=== PATIENT | female | born 1965 | race Caucasian/White ===

== ENCOUNTER → 2020-02-19 09:10 | Outpatient (CLI) | payer MEDICARE, MEDICAID, SELFPAY ==
[2020-02-19 09:27] LABS: Microscopic, Urine URINE MICROSCOPIC (MICROSCOPIC)
[2020-02-19 14:22] LABS: Appearance,Urine CLEAR (Clear); Bilirubin,Urine Negative (Negative); Blood, Urine Negative (Negative); Color,Urine YELLOW (Yellow); Glucose,Urine (UA) Negative (Negative); Ketones,Urine Negative (Negative); Leukocyte Esterase,Urine 1+ (Negative); Nitrate,Urine Negative (Negative); PH,Urine 6.5 (5.0-8.5); Protein,Urine Negative (Negative); Specific Gravity, Urine 1.015 (1.005-1.030); Urobilinogen,Urine 0.2 EU/dl (0.2)
[2020-02-19 14:25] LABS: Chloride 107 mmol/L (98-107); Potassium 4.5 mmoL/L (3.5-5.1); Sodium 141 mmol/L (136-145)
[2020-02-19 14:28] LABS: Alanine Aminotransferase 26 U/L (12-78); Albumin Level 4.3 g/dl (3.5-5.0); Albumin/Globulin Ratio 1.4 (1.1-1.8); Alkaline Phosphatase 77 U/L (38-126); Anion Gap 12.5 mEq/L (5-15); Aspartate Amino Transferase 34 U/L (14-36); Bilirubin,Total 0.4 mg/dl (0.2-1.3); Blood Urea Nitrogen 12 mg/dl (7-17); Calcium 9.7 mg/dl (8.4-10.2); Carbon Dioxide 26 mmol/L (22.0-30.0); Chol/HDL Ratio 4.4 (1-3.5); Cholesterol 253 mg/dl (140-200); Estimated Glomerular Filt Rate 65 ml/min (>60); GFR (African American) 79 ML/MIN (>60); Glucose 83 mg/dl (74-100); HDL Cholesterol 58 mg/dl (40-60); Total Protein,Serum 7.3 g/dl (6.3-8.2); Triglycerides 89 mg/dl (30-150); VLDL Cholesterol 18 mg/dL (0-40)
[2020-02-19 14:38] LABS: Basophils # 0.1 K/mm3 (0-0.2); Basophils % 1.1 % (0.1-2.0); Eosinophils # 0.3 K/mm3 (0.0-0.4); Eosinophils % 4.8 % (0.1-12.0); Hematocrit 41.4 % (37.0-47.0); Hemoglobin 14.1 g/dL (12.2-16.2); Lymphocytes # 2.2 K/mm3 (0.7-4.5); Mean Corpuscular Hemoglobin 33.1 pg (27.0-31.2); Mean Corpuscular Volume 97.3 fl (81-99); Mean Platelet Volume 10.2 fl (7.4-10.4); Monocytes # 0.2 K/mm3 (0.1-1.0); Monocytes % 3.9 % (1.7-9.3); Neutrophils # 2.9 K/mm3 (1.8-7.8); Neutrophils % 51.2 % (37.0-80.0); Platelet Count 238 K/mm3 (142-424); Red Blood Count 4.26 M/mm3 (4.20-5.40); Red Cell Distribution Width 13.1 % (11.5-17.5); White Blood Count 5.6 K/mm3 (4.8-10.8)
[2020-02-19 14:40] LABS: Direct LDL Cholesterol 156.76 mg/dL (100-129)
[2020-02-19 14:57] LABS: Thyroid Stimulating Hormone 1.54 uIU/mL (0.465-4.68)
[2020-02-19 15:00] LABS: Bacteria,Urine 1+ /lpf; RBC,Urine Occasional #/hpf (0-3)
[2020-02-19 15:01] LABS: Amorphous Sediment,Urine Trace /lpf
[2020-02-19 15:18] LABS: Hemoglobin A1C 5.2 % (4.0-6.0)
[2020-02-25 09:19] LABS: 1,25 Dihydroxy Vitamin D 43 pg/mL (.); 1,25-Dihydroxy, Vitamin D-2 <10 pg/mL (.); 1,25-Dihydroxy, Vitamin D-3 42 pg/mL (.)
== END ==
PROVIDERS: Visit Provider Emergency Medicine
DX: Z76.89 Persons encountering health services in other specified circumstances (principal); M54.9 Dorsalgia, unspecified; Z79.899 Other long term (current) drug therapy
CPT/HCPCS: 36415; 80053; 80061; 81001; 82652; 83036; 84443; 85025; 87086

== ENCOUNTER 2025-03-17 19:50 | Emergency (ER) | payer MEDICARE, SELFPAY ==
--- OUTSIDE RECORDS SUMMARY | 2024-09-12 07:30 | XMS_ITS ---
Author Organization [facility] [place] Address [address] [place] [address] [place] [address] Care Team Providers Care Waste Management Recycling Technician Name Role Phone GERRY ARELLANO Unavailable [phone] REASON FOR VISIT NEPH FU//RS FROM 08.29.24 Encounters Encounter Location Date Provider Diagnosis [facility] [address] [place] [address] 09/12/2024 GERRY ARELLANO Plan Of Treatment No Information Progress Notes * KACI GARCIADOB: [birth year] (60 yo F)Acc No.[id number]:09/12/2024 Patient: Priscilla BIBIBEAKACI Provider: Valentina ARELLANO M.D., F.A.C.P. :1965 A ge:59 Y S ex:Female Date:09/12/2024 Address:[address] [place] [address] [id number] Subjective: * Chief Complaints: * 1 . NEPH FU//RS FROM 08.29.24. * Medical History: Objective: * Vitals: Assessment: Plan: * Treatment: * * Electronic signature of RUFINO ARELLANO MD on 03/17/2025 at 08:01 PM EDT Sign off status: Pending * Provider: Valentina ARELLANO M.D., F.A.C.P. Date: 0 09/12/2024 Generated for Printi mariela/Gemma/eTransmitting on: 0 03/17/2025 08:01 PM EDT
--- OUTSIDE RECORDS SUMMARY | 2025-02-12 10:00 | XMS_ITS ---
Author Organization [facility] [place] Address [address] [place] [place] [address] Care Team Providers Care Real Estate Acquisition Analyst Name Role Phone GERRY ARELLANO Unavailable [phone] REASON FOR VISIT NEPH FOLLOW UP Encounters Encounter Location Date Provider Diagnosis [facility] [place] [address] [place] [place] [address] 02/12/2025 GERRY ARELLANO Plan Of Treatment No Information Progress Notes * KACI GARCIADOB: [birth year] (60 yo F)Acc No.[id number]:02/12/2025 Patient: KACI LUBIN Provider: Valentina ARELLANO M.D., F.A.C.P. :1965 A ge:60 Y S ex:Female Date:02/12/2025 Address:[address] [place] [address] [place] [id number] Subjective: * Chief Complaints: * 1 . NEPH FOLLOW UP. * Medical History: Objective: * Vitals: Assessment: Plan: * Treatment: * * Electronic signature of RUFINO ARELLANO MD on 03/17/2025 at 08:01 PM EDT Sign off status: Pending * Provider: Valnetina ARELLANO M.D., F.A.C.P. Date: 0 02/12/2025 Generated for Printi ng/Faxing/eTransmitting on: 0 03/17/2025 08:01 PM EDT
--- OUTSIDE RECORDS SUMMARY | 2025-02-26 04:00 | XMS_ITS ---
Author Organization [facility] [place] Address [address] [place] [address] Care Team Providers Care Svp Group Director Name Role Phone GERRY ARELLANO Unavailable [phone] REASON FOR VISIT NEPH FOLLOW UP/CCA Encounters Encounter Location Date Provider Diagnosis [facility] [address] [address] 02/26/2025 GERRY ARELLANO Plan Of Treatment No Information Progress Notes * KACI GARCIADOB: [birth year] (60 yo F)Acc No.[id number]:02/26/2025 Patient: KACI LUBIN Provider: Valentina ARELLANO M.D., F.A.C.P. :1965 A ge:60 Y S ex:Female Date:02/26/2025 Address:[address] [place], [place] [address] [id number] Subjective: * Chief Complaints: * 1 . NEPH FOLLOW UP/CCA. * Medical History: Objective: * Vitals: Assessment: Plan: * Treatment: * * Electronic signature of RUFINO ARELLANO MD on 03/17/2025 at 08:01 PM EDT Sign off status: Pending * Provider: Valentina ARELLANO M.D., F.A.C.P. Date: 0 02/26/2025 Generated for Printi ng/Faxing/eTransmitting on: 0 03/17/2025 08:01 PM EDT
--- OUTSIDE RECORDS SUMMARY | 2025-03-05 04:00 | XMS_ITS ---
Author Organization [facility] [place] Address [address] [place] [address] [place] [address] Care Team Providers Care Derivatives Trader Name Role Phone GERRY ARELLANO Unavailable [phone] REASON FOR VISIT NEPH FU//RS Encounters Encounter Location Date Provider Diagnosis [facility] [address] [address] 03/05/2025 GERRY ARELLANO Plan Of Treatment No Information Progress Notes * KACI GARCIADOB: [birth year] (60 yo F)Acc No.[id number]:03/05/2025 Patient: KACI LUBIN Provider: Valentina ARELLANO M.D., F.A.C.P. :1965 A ge:60 Y S ex:Female Date:03/05/2025 Address:[facility] [place] [facility] Subjective: * Chief Complaints: * 1 . NEPH FU//RS. * Medical History: Objective: * Vitals: Assessment: Plan: * Treatment: * * Electronic signature of RUFINO ARELLANO MD on 03/17/2025 at 08:01 PM EDT Sign off status: Pending * Provider: Valentina ARELLANO M.D., F.A.C.P. Date: 0 03/05/2025 Generated for Printi ng/Faxing/eTransmitting on: 0 03/17/2025 08:01 PM EDT
--- OUTSIDE RECORDS SUMMARY | 2025-03-12 04:00 | XMS_ITS ---
Author Organization [facility] [place] Address [address] [place] [address] Care Team Providers Care Morning Nanny Name Role Phone GERRY ARELLANO Unavailable [phone] REASON FOR VISIT f/u Encounters Encounter Location Date Provider Diagnosis [facility] [place] [address] [address] 03/12/2025 GERRY ARELLANO Plan Of Treatment No Information Progress Notes * KACI GARCIADOB: [birth year] (60 yo F)Acc No.[id number]:03/12/2025 Patient: KACI LUBIN Provider: Valentina ARELLANO M.D., F.A.C.P. :1965 A ge:60 Y S ex:Female Date:03/12/2025 Address:[address] [place] [address] [place] [id number] Subjective: * Chief Complaints: * 1 . F/u. * Medical History: Objective: * Vitals: Assessment: Plan: * Treatment: * * Electronic signature of RUFINO ARELLANO MD on 03/17/2025 at 08:01 PM EDT Sign off status: Pending * Provider: Valentina ARELLANO M.D., F.A.C.P. Date: 0 03/12/2025 Generated for Printi ng/Faxing/eTransmitting on: 03/17/2025 08:01 PM EDT
[2025-03-17 19:53] VITALS: BP 148/62; PULSE 78; RESP 17; TEMP 37.1; O2SAT 95; BMI 22.2
--- NOTE | 2025-03-17 19:58 | ED_ITS ---
<Statement entered by Nova Blevins DO - 03/18/25 15:28> I was consulted by the SAPPHIRE, and we discussed the complexity of problems being addressed. I approve the treatment and management plan for this patient's care in the emergency department, thus performing a substantial portion of the medical decision making. Nova Blevins DO Discharge Plan Disposition Patient Disposition: Home, Self-Care Condition: Good Referrals Follow up/Referrals: Concha Aj APRN [Primary Care Provider, Medical] - See instructions Activity Restrictions/Add. Instructions Additional Instructions/Restrictions: Please return to the emergency department with any worsening signs or symptoms. Please continue to take all your current medications as prescribed. Please follow-up with your PCP/family doctor in the upcoming days/weeks. Clinical Impressions Clinical Impression: Cannabinoid hyperemesis syndrome Instructions Patient Instructions: DI for Nausea -- Adult, DI for Cannabinoid Hyperemesis Syndrome Print Language Print Language: Lao Discharge ED Provider: Nova Blevins General Adult HPI General Chief complaint: Nausea/Vomiting/Diarrhea Stated complaint: N/V Time Seen by Provider: 03/17/25 19:51 Mode of Arrival: EMS Source of Information: Patient Limitations: No Limitations History of Present Illness HPI narrative: 60-year-old female presents to the emergency department via EMS for nausea and vomiting episode x 2, started this evening, patient endorses waxing and waning nausea for 1 week, patient admits to subjective fever chills, no recorded Tmax, no chest pain no shortness of breath, no abdominal pain, no hematuria melena hematochezia or hematemesis, patient denies any constipation or diarrhea, no urinary type symptomatology. Patient is a current everyday smoker, denies any alcohol, denies any overt drug use, does state that she took a delta 8 gummy today. Patient was also seen by what sound like her PCP today, for 3-month checkup, unremarkable visit, when asking if the patient had the symptoms prior, patient states no they started tonight . Other past medical history is consistent with hyperlipidemia, hypertension, anxiety/depression, COPD. Initial triage vitals are unremarkable. Of note patient received Zofran IV, and LR IV en route via EMS Please note that above description of symptoms, in this electronic medical record under categorization of recalled from ER triage doctor by RN are reflective of an initial nursing assessment, however, is not reflective of my full history and physical exam that was personally taken and clarified. Consequentially, this preceding description of symptoms, which may include the patient's categorized chief complaint in the EMR, do not reflect my personal clinical impression, and the ultimate description of history of present illness and patient stated complaints should be deferred to this section of the note. Unless stated otherwise or congruent with this section of the note, additional signs, symptoms, or incongruence should be interpreted as inaccurate with my clinical impression. Onset (ago): hour(s) Related Data Allergies Allergy/AdvReac Type Severity Reaction Status Date / Time No Known Allergies Allergy Verified 03/17/25 20:02 [facility] Disclaimer: The information contained in this section may have been updated after the patient was seen, as this information can be updated by other users. Social History Smoking Status: Current every day smoker alcohol intake: never current occupational status: other Travel in the last 8 weeks?: None ROS Obtained: Yes All systems reviewed & no additional complaints except as documented Physical Exam General General appearance: alert and in no apparent distress Head Head exam: atraumatic and normocephalic Eye Eye exam: Present PERRL and EOMI ENT ENT exam: Present mucous membranes moist Neck Neck exam: Present normal inspection Chest Chest inspection: Present normal inspection and symmetric chest wall rise Respiratory Respiratory exam: Present normal lung sounds bilaterally; Absent respiratory distress Cardiovascular Cardiovascular exam: Present regular rate and normal rhythm Abdominal Exam Abdominal exam: Present soft; Absent tenderness, guarding or rebound Extremities Exam Extremities exam: Present normal inspection Neurological Exam Neurological exam: Present alert and oriented X3 Psychiatric Psychiatric exam: Present normal affect Skin Skin exam: Present warm and dry Medical Decision Making Medical Records Medical records reviewed: Yes I reviewed the patient's medical records. Screening: Per USPSTF and CDC recommendations, given the prevalence of disease in our region, it is our hospital?s policy to screen for HIV and viral Hepatitis for all patients aged 18 and over and those with ongoing risk factors. Scott Inquiry Pt receiving controlled substance: No Scott was queried for this patient: No Vital Signs: 03/17/25 19:53 03/17/25 20:03 03/17/25 21:00 Temperature 98.7 F 98.7 F Temperature Source Oral Oral Pulse Rate 78 55 L Pulse Rate [Left Radial] 78 Respiratory Rate 17 17 Blood Pressure 143/62 H 155/71 H Blood Pressure [Left Radial Artery] 148/62 H Blood Pressure Mean [Left Radial Artery] 90 Blood Pressure Source [Left Radial Artery] Automatic Cuff Blood Pressure Position Sitting Blood Pressure Position [Left Radial Artery] Sitting 02 Sat by Pulse Oximetry 95 95 97 Oxygen Delivery Method Room Air Room Air Lab Data Lab results reviewed: Yes I reviewed the patient's lab results. Lab Results 03/17/25 19:57: Urine Color Yellow, Urine Appearance Clear, Urine pH 7.0, Ur Specific [place]sey 1.015, Urine Protein Negative, Urine Glucose (UA) Negative, Urine Ketones Negative, Urine Blood Trace-i, Urine Nitrate Negative, Urine Bilirubin Negative, Urine Urobilinogen 0.2, Ur Leukocyte Esterase Trace, Urine RBC 5-10, Urine WBC 3-5, Ur Squamous Epith Cells 3-5, Urine Bacteria 1+ 03/17/25 20:10: Urine Opiates Screen Negative, Urine Methadone Screen Negative, Ur Barbituates Screen Positive H, Ur Phencyclidine Scrn Negative, Ur Amphetamines Screen Negative, U Benzodiazepines Scrn Negative, Urine Cocaine Screen Negative, U Marijuana (THC) Screen Positive H 03/17/25 20:16: WBC 5.8, RBC 4.08 L, Hgb 12.8, Hct 38.3, MCV 93.9, MCH 31.4 H, MCHC 33.4, RDW 13.4, Plt Count 180, MPV 10.4, Neut % (Auto) 66.0, Lymph % (Auto) 27.6, [place] % (Auto) 3.9, Eos % (Auto) 1.9, Baso % (Auto) 0.3, Neut # (Auto) 3.9, Lymph # (Auto) 1.6, [place] # (Auto) 0.2, Eos # (Auto) 0.1, Baso # (Auto) 0.0, Sodium 137, Potassium 3.9, Chloride 105, Carbon Dioxide 26, Anion Gap 9.9, BUN 9, Creatinine 0.80, Estimated Creat Clear 74, Estimated GFR 73, Est GFR ( Amer) 89, Glucose 106 H, Calcium 9.4, Magnesium 1.8, Total Bilirubin 0.4, AST 42 H, ALT 23, Alkaline Phosphatase 80, Total Protein 7.7, Albumin 4.6, Globulin 3.1, Albumin/Globulin Ratio 1.5, Lipase 111, Plasma/Serum Alcohol < 10 03/17/25 21:00: Lactate 1.0 03/17/25 20:16 03/17/25 20:16 Orders (Tests/Meds): ED MEDICATIONS Discontinued Medications Generic Name Dose Route Start Last Admin Trade Name Joel PRN Reason Stop Dose Admin Droperidol 0.625 mg 03/17/25 21:04 03/17/25 21:22 Droperidol 5mg/2ml Vial IV 03/17/25 21:05 0.625 mg ONCE ONE Administration ORDERS Category Date Time Status Complete Blood Count Auto Diff Stat Lab 03/17/25 20:16 Completed Comprehensive Metabolic Panel Stat Lab 03/17/25 20:16 Completed Drug Screen,Urine Stat Lab 03/17/25 20:10 Completed Ethanol [Ethyl Alcohol] Stat Lab 03/17/25 20:16 Completed Lactic Acid Stat Lab 03/17/25 21:00 Completed Lipase Stat Lab 03/17/25 20:16 Completed Magnesium Stat Lab 03/17/25 20:16 Completed Urinalysis and Microscopic Stat Lab 03/17/25 19:57 Completed Medical Decision Narrative: 60-year-old female presents the emergency department via EMS for nausea vomiting, last 24 hours, differential diagnose include but not limited to, colitis, gastroenteritis, gastritis, cardiac arrhythmia, electrolyte disturbance, cannabinoid hyperemesis syndrome among others. I discussed this patient's case with attending physician Dr. Blevins Will obtain basic laboratory studies, EKG, UDS at the alcohol level, lactic acid level, lipase low magnesium level and UA. UA is unremarkable, negative nitrites, trace leukocyte esterase, negative ketonuria, negative hematuria CBC unremarkable UDS notable for barbiturates as well as marijuana (THC) otherwise negative. CMP notable for mild AST elevation of 42, lipase within normal limits. Patient still complaining of some nausea, after Zofran administration per EMS, will give 0.65 IV droperidol for nausea. Most likely in the setting of cannabinoid hyperemesis. Ethyl alcohol level within normal limits. No lactic acidosis. Will p.o. challenge patient. Patient had successful p.o. challenge with soda, her nausea and vomiting symptoms have subsided, I do believe this is a degree of cannabinoid hyperemesis, patient states that she took a different brand , of THC delta 8 Gummies today. This could be attributing to her send otology. Patient was given strict ED return precautions. Patient voiced understanding and agreement with the current treatment plan/discharge plan. Patient will follow-up PCP and other providers in the upcoming days/weeks. Critical Care Critical Care Time Critical Care Time: No
--- OUTSIDE RECORDS SUMMARY | 2025-03-17 20:01 | XMS_ITS | Patient Health Record ---
Author Organization [facility] [place] Address [address] [place] [address] Care Team Providers Care Escrow Closer Name Role Phone GERRY ARELLANO Unavailable [phone] Allergies No Known Allergies Results Component Value Reference Range Notes Comp. Metabolic Panel (14) Reviewed date:04/12/2024 09:06:57 AM Interpretation: Performing Lab:[facility] [place], [address] [facility], Phone - [phone], Director - PhDRicchiedgari Notes/Report: Glucose 71 70-99 mg/dL BUN 16 6-24 mg/dL Creatinine 1.07 0.57-1.00 mg/dL eGFR 60 >59 mL/min/1.73 BUN/Creatinine Ratio 15 9-23 Sodium 142 134-144 mmol/L Potassium 4.3 3.5-5.2 mmol/L Chloride 101 96-106 mmol/L Carbon Dioxide, Total 23 20-29 mmol/L Calcium 9.1 8.7-10.2 mg/dL Protein, Total 6.8 6.0-8.5 g/dL Albumin 4.4 3.8-4.9 g/dL Globulin, Total 2.4 1.5-4.5 g/dL Bilirubin, Total <0.2 0.0-1.2 mg/dL Alkaline Phosphatase 90 44-121 IU/L AST (SGOT) 19 0-40 IU/L ALT (SGPT) 14 0-32 IU/L Ultrasound : Kidneys Reviewed date:03/21/2024 12:06:18 PM Interpretation: Performing Lab: Notes/Report: SHYAM 12 Plus Profile (RDL) Reviewed date:04/03/2024 09:48:27 AM Interpretation: Performing Lab:[facility] [place], [address] [facility], [place], Phone - [phone], Director - Ana Notes/Report: Test(s) 763615-Bmjb-Fbzxaqw Ab by IFA (RDL); 598453- Homogeneous Pattern; 203738-Ieocsjjny Pattern; 157480- Speckled Pattern; 255974-Ansvfpqxhg Pattern; 609301- Spindle Apparatus Pattern; 607960-Uchhpkq Membrane Pattern; 921286- Midbody Pattern; 504698-Oouuanw Dot Pattern; 113575-FEUD Pattern; 866460-Vpfiqipmb Pattern; 719606-Agvs-dxVLQ Ab by Magdy(RDL); 382414- Anti-CCP Ab, IgG + IgA (RDL) was developed and its performance characteristics determined by [employer]. It has not been cleared or approved by the Food and Drug Administration. Test(s) 218428-Hghw-Tisrtlj Ab by IFA (RDL); 608620- Homogeneous Pattern; 869291-Hfecprwxd Pattern; 806590- Speckled Pattern; 864105-Gfrbfnckhg Pattern; 018497- Spindle Apparatus Pattern; 443284-Orupujs Membrane Pattern; 394840- Midbody Pattern; 518871-Izpdqgx Dot Pattern; 431156-ZTIR Pattern; 556799-Scdpnnjof Pattern; 195649-Evqr-gmDXX Ab by Magdy(RDL); 460506- Anti-CCP Ab, IgG + IgA (RDL) was developed and its performance characteristics determined by [employer]. It has not been cleared or approved by the Food and Drug Administration. Anti-Nuclear Ab by IFA (RDL) Positive Negative Centromere Pattern 1:1280 <1:40 Note: SHYAM performed b y Indirect Fluorescent Antibody (IFA) Anti-Centromere Ab by IFA(RDL) 1:1280 <1:40 Anti-dsDNA Ab by Magdy(RDL) <8.0 <8.0 IU/mL Anti-Sm Ab (RDL) <20 <20 Units Anti-U1 STATE ATTORNEY Ab (RDL) <20 <20 Units Anti-Ro (SS-A) Ab (RDL) 25 <20 Units Anti-La (SS-B) Ab (RDL) <20 <20 Units Anti-Scl-70 Ab (RDL) <20 <20 Units Anti-Cardiolipin Ab, IgG (RDL) <15 <15 GPL U/ mL Anti-Cardiolipin Ab, IgA (RDL) <12 <12 APL U/ mL Anti-Cardiolipin Ab, IgM (RDL) 17 <13 MPL U/ mL C3 Complement (RDL) 140 82-167 mg/dL C4 Complement (RDL) 34 14-44 mg/dL Anti-TPO Ab (RDL) <9.0 <9.0 IU/mL Anti-Chromatin Ab, IgG (RDL) 22 <20 Units Anti-CCP Ab, IgG + IgA (RDL) <20 <20 Units Rheumatoid Factor by Turb RDL <14 <14 IU/mL SHYAM Plus 12 Interpretation Interpretation for Anti-Sm, Anti-U1 STATE ATTORNEY, Anti-Ro, Anti-La: Negative: <20 Weak Positive: 20 - 39 Moderate Positive: 40 - 80 Strong Positive: >80 . Interpretation for Anti-CCP Ab, IgG / IgA: Negative: <20 Weak Positive: 20 - 39 Moderate Positive: 40 - 59 Strong Positive: >59 . Interpretation for Anti-Cardiolipin Ab: Negative: GPL <15, APL <12, MPL <13 Indeterminate: GPL 15-20, APL 12-20, MPL 13-20 Low Positive: GPL, APL, MPL >20 - 40 Med Positive: GPL, APL, MPL >40 - 80 High Positive: GPL, APL, MPL >80 . SLE classification criteria are based on Med to High titer (>40) Anti-Cardiolipin Ab (aCL). aCL may be elevated transiently with certain infections and may increase spuriously in the presence of rheumatoid factor. ANCA Profile Reviewed date:04/03/2024 09:48:16 AM Interpretation: Performing Lab:[facility], [address] [place] [address], Phone - [phone], Director - [facility] Notes/Report: Test(s) [id number]-Qaap-Diuvkgq Ab by IFA (RDL); 638094- Homogeneous Pattern; 855676-Nzzypktdr Pattern; 447854- Speckled Pattern; 381755-Eouvzhispc Pattern; 482579- Spindle Apparatus Pattern; 259379-Vzrkech Membrane Pattern; 875994- Midbody Pattern; 515280-Kvzvhuf Dot Pattern; 119675-HKYH Pattern; 211069-Nqqhyhlbc Pattern; 531821-Fctf-csZHL Ab by Magdy(RDL); 123682- Anti-CCP Ab, IgG + IgA (RDL) was developed and its performance characteristics determined by [employer]. It has not been cleared or approved by the Food and Drug Administration. Anti-MPO Antibodies <0.2 0.0-0.9 units Anti-PR3 Antibodies <0.2 0.0-0.9 units Cytoplasmic (C-ANCA) <1:20 Neg:<1:20 titer Perinuclear (P-ANCA) <1:20 Neg:<1:20 titer The presence of positive fluorescence exhibiting P-ANCA or C-ANCA patterns alone is not specific for the diagnosis of Heather's Granulomatosis (WG) or microscopic polyangiitis. Decisions about treatment should not be based solely on ANCA IFA results. The International ANCA Group Consensus recommends follow up testing of positive sera with both NM-3 and MPO-ANCA enzyme immunoassays. As many as 5% serum samples are positive only by EIA. Ref. AM J Clin Pathol 1999;111:507-513. Atypical pANCA <1:20 Neg:<1:20 titer The atypical pANCA pattern has been observed in a significant percentage of patients with ulcerative colitis, primary sclerosing cholangitis and autoimmune hepatitis. Comp. Metabolic Panel (14) Reviewed date:04/03/2024 09:48:09 AM Interpretation: Performing Lab:[facility] [place], [address] [facility], [place], Phone - [phone], Director - Ana Notes/Report: Test(s) [id number]-Voze-Iscuajx Ab by IFA (RDL); 462500- Homogeneous Pattern; 226834-Eduidhzon Pattern; 055456- Speckled Pattern; 833482-Leqvekrcru Pattern; 000079- Spindle Apparatus Pattern; 285393-Rrcserf Membrane Pattern; 437710- Midbody Pattern; 516207-Enfanoz Dot Pattern; 087630-TNWG Pattern; 037305-Hqzbhgeof Pattern; 873585-Wffm-vpXRG Ab by Magdy(RDL); 945386- Anti-CCP Ab, IgG + IgA (RDL) was developed and its performance characteristics determined by [employer]. It has not been cleared or approved by the Food and Drug Administration. Glucose 105 70-99 mg/dL BUN 16 6-24 mg/dL Creatinine 1.13 0.57-1.00 mg/dL eGFR 56 >59 mL/min/1.73 BUN/Creatinine Ratio 14 9-23 Sodium 137 134-144 mmol/L Potassium 4.0 3.5-5.2 mmol/L Chloride 98 96-106 mmol/L Carbon Dioxide, Total 24 20-29 mmol/L Calcium 9.9 8.7-10.2 mg/dL Protein, Total 7.8 6.0-8.5 g/dL Albumin 4.7 3.8-4.9 g/dL Globulin, Total 3.1 1.5-4.5 g/dL Bilirubin, Total 0.4 0.0-1.2 mg/dL Alkaline Phosphatase 95 44-121 IU/L AST (SGOT) 21 0-40 IU/L ALT (SGPT) 10 0-32 IU/L Urinalysis, Complete Reviewed date:04/03/2024 09:48:13 AM Interpretation: Performing Lab:[facility] [place], [address] [place] [address], Phone - [phone], Director - Ana Notes/Report: Test(s) 396009-Edjx-Puvltqs Ab by IFA (RDL); 742555- Homogeneous Pattern; 613411-Dohygltls Pattern; 829012- Speckled Pattern; 792129-Xzvpswxfqw Pattern; 036768- Spindle Apparatus Pattern; 243987-Ghkxkjl Membrane Pattern; 737284- Midbody Pattern; 022971-Oecwabj Dot Pattern; 160114-USSP Pattern; 327618-Yjruvgpxp Pattern; 911681-Bhbp-pmUOM Ab by Magdy(RDL); 069844- Anti-CCP Ab, IgG + IgA (RDL) was developed and its performance characteristics determined by [employer]. It has not been cleared or approved by the Food and Drug Administration. Test(s) 256022-Luaj-Qulrwnp Ab by IFA (RDL); 227643- Homogeneous Pattern; 912742-Xyzfdpehf Pattern; 713366- Speckled Pattern; 828998-Dakvtufudw Pattern; 919162- Spindle Apparatus Pattern; 748331-Wvxbpge Membrane Pattern; 706247- Midbody Pattern; 217053-Hstipig Dot Pattern; 424890-FCNC Pattern; 241861-Btjaueyyc Pattern; 188679-Cynj-iqZFB Ab by Magdy(RDL); 941111- Anti-CCP Ab, IgG + IgA (RDL) was developed and its performance characteristics determined by [employer]. It has not been cleared or approved by the Food and Drug Administration. Specific Java 1.016 1.005-1.030 pH 6.0 5.0-7.5 Urine-Color Yellow Yellow Appearance Clear Clear WBC Esterase Negative Negative Protein Negative Negative/Trace Glucose Negative Negative Ketones Negative Negative Occult Blood Negative Negative Bilirubin Negative Negative Urobilinogen,Semi-Qn 1.0 0.2-1.0 mg/dL Nitrite, Urine Negative Negative Microscopic Examination Micr oscopic follows if indicated. Microscopic Examination See below: Micr oscopic was indicated and was performed. WBC None seen 0 - 5 /hpf RBC None seen 0 - 2 /hpf Epithelial Cells (non renal) None seen 0 - 10 /hpf Casts None seen None seen /lpf Bacteria None seen None seen/Few Uric Acid, Serum Reviewed date:04/03/2024 09:48:21 AM Interpretation: Performing Lab:[facility] [place], [address] [facility], Phone - [phone], Director - Ana Notes/Report: Test(s) 361764-Qpxj-Onzkrrd Ab by IFA (RDL); 226593- Homogeneous Pattern; 717304-Pcjacqqtc Pattern; 924086- Speckled Pattern; 872599-Eipkoshzcr Pattern; 099755- Spindle Apparatus Pattern; 885695-Egvoldo Membrane Pattern; 268611- Midbody Pattern; 946506-Ybvlvbo Dot Pattern; 564308-OVUF Pattern; 018560-Xeintrrxe Pattern; 651901-Poir-kkJDF Ab by Magdy(RDL); 318289- Anti-CCP Ab, IgG + IgA (RDL) was developed and its performance characteristics determined by [employer]. It has not been cleared or approved by the Food and Drug Administration. Uric Acid 3.6 3.0-7.2 mg/dL Therapeutic ta rget for gout patients: <6.0 Reason For Referral No Information Medications Medication SIG (Take, Route, Frequency, Duration) Notes Start Date End Date Status hydroCHLOROthiazide 12.5 MG 1 capsule in the morning Orally Once a day Active Migraine Relief 250-250-65 MG 2 tablets Orally Once a day Active Sertraline HCl 50 MG 1 tablet Orally Onc e a day Active Rosuvastatin Calcium 40 MG 1 tablet Oral ly Once a day Active QUEtiapine Fumarate 25 MG 1&1/2 tablet b y mouth at bedtime Orally Once a day Active Problems Problem Type SNOMED Code ICD Code Onset Dates Problem Status W/U Status Risk Notes Problem Essential hypertension (72706126) Essential (primary) hypertension (I10) Active confirmed Problem Dysthymia (52326734) Dysthymia (F34.1) Active confirmed Problem Migraine (67276293) Migraine (G43.909) Active confirmed Vital Signs Heart Rate 70 /min 05/23/2024 Temperature 97.1 degrees Fahrenheit 05/23/2024 Respiratory Rate 18 /min 05/23/2024 Oximetry 98 % 05/23/2024 Blood pressure diastolic 68 mm Hg 05/23/2024 Height 64 in 05/23/2024 Blood pressure systolic 118 mm Hg 05/23/2024 Weight 146 lbs 05/23/2024 BMI 25.06 kg/m2 05/23/2024 Encounters Encounter Location Date Provider Diagnosis [facility] [address] [place] [address] 03/21/2024 REZKALLA BUTROS Interstitial nephrit is N12 ; Renal insufficiency N28.9 ; Essential (primary) hypertension I10 ; Migraine G43.909 and Dysthymia F34.1 [facility] [address] [place] [address] 04/11/2024 REZKALLA BUTROS Interstitial nephrit is N12 ; Renal insufficiency N28.9 ; Essential (primary) hypertension I10 and Migraine G43.909 [facility] [address] [place] [address] 05/23/2024 REZKALLA BUTROS Interstitial nephrit is N12 ; Renal insufficiency N28.9 ; Essential (primary) hypertension I10 and Migraine G43.909 Assessments Encounter Date Diagnosis (ICD Code) Assessment Notes Treatment Notes Treatment Clinical Notes Section Notes 03/21/2024 Interstitial nephritis (ICD-10 - N12) it could be The etiology behind RF . (NSAID) we will start some work up 03/21/2024 Renal insufficiency (ICD-10 - N28.9) Check US . stop using NSAID 04/11/2024 Interstitial nephritis (ICD-10 - N12) ANCA lewvels are high but no blood no prot,.in urine so I do not know How significant That is . I had a long discussion with pt. we decided just to watch for now 04/11/2024 Renal insufficiency (ICD-10 - N28.9) US showing NL kidney Size no hydro. discussed with pt. in details 05/23/2024 Interstitial nephritis (ICD-10 - N12) Related to NSAID was The Most likely etiology behind RF . avoid NSAID . can take Tylenol 05/23/2024 Renal insufficiency (ICD-10 - N28.9) Labs rev. with pt. in details Cr is down kidney function is better . she was Reassured 05/23/2024 Essential (primary) hypertension (ICD-10 - I10) BP under good control with current regimen, discussed low salt diet, measuring BP some times. cont. current meds. 04/11/2024 Essential (primary) hypertension (ICD-10 - I10) BP under good control with current regimen, discussed low salt diet, measuring BP some times. cont. current meds. 03/21/2024 Essential (primary) hypertension (ICD-10 - I10) BP under good control with current regimen, discussed low salt diet, measuring BP some times. cont. current meds. 03/21/2024 Migraine (ICD-10 - G43.909) she will need some maintainence Meds (Qulipta/ ...) 04/11/2024 Migraine (ICD-10 - G43.909) Avoid NSAID . they could be The [place] 05/23/2024 Migraine (ICD-10 - G43.909) Treated 03/21/2024 Dysthymia (ICD-10 - F34.1) stable Plan Of Treatment No Information Insurance Providers Payer Name Payer Address Payer Phone Subscriber Number Group Number Insured Name Patient Relationship to Insured Coverage Start Date Coverage End Date [facility] MEDICARE [address] [place] [address] [phone] [id number] KACI GARCIA Self - patient is the insured
[2025-03-17 20:03] VITALS: BP 143/62; PULSE 78; RESP 17; TEMP 37.1; O2SAT 95
[2025-03-17 20:19] LABS: Microscopic, Urine URINE MICROSCOPIC (MICROSCOPIC)
[2025-03-17 20:22] LABS: Bilirubin,Urine Negative (Negative); Color,Urine YELLOW (Yellow); Glucose,Urine (UA) Negative (Negative); Ketones,Urine Negative (Negative); Leukocyte Esterase,Urine TRACE (Negative); PH,Urine 7.0 (5.0-8.5); Protein,Urine Negative (Negative); Specific Gravity, Urine 1.015 (1.005-1.030); Urobilinogen,Urine 0.2 EU/dl (0.2)
[2025-03-17 20:38] LABS: Hematocrit 38.3 % (37.0-47.0); Hemoglobin 12.8 g/dL (12.2-16.2); Immature Granulocytes % 0.3 %; Mean Corpuscular HGB Conc 33.4 g/dL (31.8-35.4); Mean Corpuscular Hemoglobin 31.4 pg (27.0-31.2); Mean Corpuscular Volume 93.9 fl (81-99); Nucleated Red Blood Cells % 0 %; Platelet Count 180 K/mm3 (142-424); Red Blood Count 4.08 M/mm3 (4.20-5.40); Red Cell Distribution Width-SD 46.3 fL; White Blood Count 5.8 K/mm3 (4.8-10.8)
[2025-03-17 20:39] LABS: Barbiturates Screen,Urine Positive ng/ml (<200); Benzodiazepines Screen,Urine Negative ng/ml (<200)
[2025-03-17 20:40] LABS: Amphetamine/Metha Screen,Urine Negative ng/ml (<1000)
[2025-03-17 20:42] LABS: Methadone Screen,Urine Negative ng/ml (<300); Opiate Screen,Urine Negative ng/ml (<300)
[2025-03-17 20:43] LABS: Phencyclidine Screen,Urine Negative ng/ml (<25)
[2025-03-17 20:45] LABS: Albumin Level 4.6 g/dl (3.5-5.0); Chloride 105 mmol/L (98-107)
[2025-03-17 20:46] LABS: Potassium 3.9 mmoL/L (3.5-5.1); Sodium 137 mmol/L (136-145)
--- NOTE | 2025-03-17 20:46 | ECG_ITS ---
APPROVED REPORT Exam: Resting ECG HR:59 bpm ECG Measurements Heart Rate 59 AXES KS 178 P 83 QRSd 89 QRS 79 QT 432 T 67 QTc 432 Conclusion SINUS BRADYCARDIA NONSPECIFIC ST & T-WAVE ABNORMALITY BORDERLINE ECG UNCONFIRMED REPORT Electronically signed by : JOSH BELLO, 03/17/2025 23:01:35
[2025-03-17 20:48] LABS: Alanine Aminotransferase 23 U/L (12-78); Anion Gap 9.9 mEq/L (5-15); Aspartate Amino Transferase 42 U/L (14-36); Bilirubin,Total 0.4 mg/dl (0.2-1.3); Blood Urea Nitrogen 9 mg/dl (7-17); Carbon Dioxide 26 mmol/L (22.0-30.0); Creatinine Clearance Estimated 74 mL/min (50-200); Creatinine,Serum 0.80 mg/dl (0.52-1.04); Estimated Glomerular Filt Rate 73 ml/min (>60); GFR (African American) 89 ML/MIN (>60)
[2025-03-17 20:49] LABS: Albumin/Globulin Ratio 1.5 (1.1-1.8); Alkaline Phosphatase 80 U/L (38-126); Calcium 9.4 mg/dl (8.4-10.2); Globulin 3.1 g/dL (1.3-3.2); Glucose 106 mg/dl (74-100); Lipase 111 U/L (23-300); Magnesium 1.8 mg/dl (1.6-2.3); Total Protein,Serum 7.7 g/dl (6.3-8.2)
[2025-03-17 21:00] VITALS: BP 155/71; PULSE 55; O2SAT 97
[2025-03-17 21:04] LABS: Bacteria,Urine 1+ /lpf
[2025-03-17] MEDS: droPERidol 5MG/2ML VIAL 0.625 MG IV (21:22)
[2025-03-17 22:05] VITALS: BP 151/68; PULSE 65; RESP 18; TEMP 37; O2SAT 96
== END 2025-03-17 22:10 | disposition home or self-care (01) ==
PROVIDERS: Physician Assistant; Emergency Provider Student in an Organized Health Care Education/Training Program; PCP Nurse Practitioner
DX: R11.2 Nausea with vomiting, unspecified (principal); F12.188 Cannabis abuse with other cannabis-induced disorder; F17.210 Nicotine dependence, cigarettes, uncomplicated
CPT/HCPCS: 80053; 80307; 80320; 81001; 83605; 83690; 83735; 85025; 93005; 96374; 99284; 99285; J1790